=== PATIENT | female | born 1950 | race Caucasian/White ===

== ENCOUNTER → 2017-01-27 | Outpatient (CLI) | payer OTHER ==
--- NOTE | 2017-01-27 15:00 | US ---
EXAMINATION TYPE: US venous doppler duplex LE RT DATE OF EXAM: 01/27/2017 2:42 PM COMPARISON: No previous CLINICAL HISTORY: M79.669 PAIN IN LOWER LEG. Right leg pain x 1 week SIDE PERFORMED: Right VESSELS IMAGED: External Iliac Vein (EIV) Common Femoral Vein Deep Femoral Vein Greater Saphenous Vein * Femoral Vein Popliteal Vein Small Saphenous Vein * Proximal Calf Veins (* superficial vessels) No evidence for a filling defect. Normal compressibility and augmentation of flow. Right Leg: Appears negative for DVT IMPRESSION: No evidence for DVT.
--- NOTE | 2017-01-27 15:37 | XR ---
EXAMINATION TYPE: XR ankle complete RT, XR foot complete RT DATE OF EXAM: 01/27/2017 3:02 PM COMPARISON: NONE HISTORY: Pain TECHNIQUE: Frontal, lateral and oblique images of the right ankle are obtained. COMPARISON: None. FINDINGS: There is no acute fracture/dislocation evident. The joint spaces appear within normal centeno its. The overlying soft tissue appears unremarkable. IMPRESSION: There is no acute fracture or dislocation seen. EXAMINATION TYPE: XR ankle complete RT, XR foot complete RT DATE OF EXAM: 01/27/2017 3:02 PM CLINICAL HISTORY: pain TECHNIQUE: Frontal, lateral and oblique images of the right foot are obtained. COMPARISON: None. FINDINGS: There is no acute fracture/dislocation evident. There is erosive change noted to involve t he head of the fifth metatarsal which may be related to remote fracture. The joint spaces appear wit hin normal limits. The overlying soft tissue appears unremarkable. IMPRESSION: There is no acute fracture or dislocation. ICD 10 NO FRACTURE, INITIAL EVALUATION
== END | disposition home or self-care (01) ==
LOC: RADUSWWP 14:08
PROVIDERS: ATTEND Family Medicine
DX: M79.669 Pain in unspecified lower leg (principal); M79.671 Pain in right foot

== ENCOUNTER → 2017-03-09 | Outpatient (CLI) | payer OTHER ==
--- NOTE | 2017-03-14 09:48 | MM ---
Reason for exam: screening (asymptomatic). Physical Findings: A clinical breast exam by your physician is recommended on an annual basis and results should be correlated with mammographic findings. MG Screening Mammo w CAD Bilateral CC and MLO view(s) were taken. No prior studies available for comparison. The breast tissue is extremely dense which could obscure a lesion on mammography. There is no discrete abnormality. No significant changes when compared with prior studies. ASSESSMENT: Negative, BI-RAD 1 RECOMMENDATION: Routine screening mammogram of both breasts in 1 year.
== END | disposition home or self-care (01) ==
LOC: RADMAMWWP 10:36
PROVIDERS: ATTEND Family Medicine
DX: Z12.31 Encounter for screening mammogram for malignant neoplasm of breast (principal)

== ENCOUNTER → 2017-06-21 | Outpatient (CLI) | payer OTHER ==
[~2017-06-21] MED LIST: REGADENOSON 0.4 MG/5 ML SYRINGE IV ONE
--- NOTE | 2017-06-21 11:41 | NM ---
EXAMINATION TYPE: NM stress Lexiscan cardiolite DATE OF EXAM: 06/21/2017 COMPARISON: NONE HISTORY: Abnormal EKG. TECHNIQUE: After the intravenous administration of 10.02 mCi Tc 99m Sestamibi - Cardiolite resting S PECT images acquired 55 minutes post injection. The patient received 0.4mg Lexiscan, 26.4 mCi Tc 99m Sestamibi - Stress images obtained [address] injection FINDINGS: There is thinning of the inferior wall of the left ventricle. This could be due to diaphrag matic attenuation or previous nontransmural infarct. There is no convincing inducible ischemic change . There is a paradoxical motion of the septum. Ejection fraction is 59%. IMPRESSION: 1. NO CONVINCING EVIDENCE OF INDUCIBLE ISCHEMIC CHANGE AT THIS TIME. 2. THINNING OF THE INFERIOR WALL OF THE LEFT VENTRICLE. 3. PARADOXICAL MOTION OF THE SEPTUM.
--- NOTE | 2017-06-21 12:54 | EST ---
DATE OF SERVICE: 06/21/2017 TYPE OF REPORT: Lexiscan Cardiolite INDICATION: Pre-op. BASELINE HEART RATE: 73 BASELINE BLOOD PRESSURE: 144/71 MAXIMUM HEART RATE: 100 MAXIMUM BLOOD PRESSURE: 139/62 85% MPHR: 133 100% MPHR: 156 METS: MAX STAGE REACHED: TOTAL EXERCISE TIME: The patient was given Lexiscan injection over a period of 15 seconds. The peak heart rate of 100 was achieved. Maximum blood pressure of 139//62 mmHg was noted. Resting EKG shows normal sinus rhythm with normal SD interval and QRS duration and normal ST-T waves. No ST segment depression suggestive of ischemia was noted. The results of the nuclear study will follow. [facility]
== END ==
LOC: RADNMMAIN 08:47
PROVIDERS: ATTEND Family Medicine
DX: R94.31 Abnormal electrocardiogram [ECG] [EKG] (principal)
CPT/HCPCS: 93017; 78452; A9500; J2785

== ENCOUNTER → 2017-08-29 | Outpatient (CLI) | payer SELFPAY | END | disposition home or self-care (01) | LOC: LABWHC1 08:33 | PROVIDERS: ATTEND Orthopaedic Surgery | DX: E55.9 Vitamin D deficiency, unspecified (principal) | CPT/HCPCS: 36415; 82306 ==

== ENCOUNTER → 2018-04-24 | Outpatient (CLI) | payer MEDICARE, OTHER ==
--- NOTE | 2018-04-24 12:57 | BD ---
EXAMINATION TYPE: Axial Bone Density DATE OF EXAM: 04/24/2018 COMPARISON: 12.23.2008 CLINICAL HISTORY: 67 YR OLD FEMALE....ICD-10 CODE M81.0 AGE RELATED OSTEOPOROSIS W/O HRT Height: 61 Weight: 93 FRAX RISK QUESTIONS: Alcohol (3 or more units per day): SOCIAL ONLY Secondary Osteoporosis: 4. Malnutrition: VERY THIN, FRAIL Current Tobacco Use: YES, 1/2 PAC DAILY RISK FACTORS HISTORY OF: Active: YES Diet low in dairy products/other sources of calcium: NO Postmenopausal woman: YES AT AGE 53 Lost more than 2 inches in height since high school: YES MEDICATIONS: Additional Medications: BP MEDS, BABY ASPIRIN, MOTRIN, REFLUX MEDS, LIPITOR Additional History: NOTHING ADDITIONAL TO NOTE EXAM MEASUREMENTS: Bone mineral densitometry was performed using the Celery System. Bone mineral density as measured about the Lumbar spine is: ----- L1-L4(G/cm2): 1.199 T Score Values are as follows: ----- L1: -1.7 ----- L2: 0.5 ----- L3: 1.3 ----- L4: 0.2 ----- L1-L4: 0.2 Bone mineral density has: Increased 27.1% since study of: 12.23.2008 Bone mineral density about the R hip (g/cm2): 0.687 Bone mineral density about the L hip (g/cm2): 0.719 T Score values are as follows: -----R Neck: -2.5 -----L Neck: -2.4 -----R Total: -2.5 -----L Total: -2.3 Bone mineral density has: Decreased -4.9% since study of: 12.23.2008 FRAX%S: THERE IS A 12.2% CHANCE OF A MAJOR OSTEOPOROTIC FX AND A 4.5% FOR A HIP FX.....PROBABILITY OF FX IN 10 YRS TIME IMPRESSION: Osteoporosis about the right and osteopenia about the left hip. No evidence for osteoporosis or osteo penia about the lumbar spine. NOTE: T-SCORE=SD OF THE YOUNG ADULT MEAN.
== END | disposition home or self-care (01) ==
LOC: RADBDWWP 09:07
PROVIDERS: ATTEND Family Medicine
DX: M81.0 Age-related osteoporosis without current pathological fracture (principal); M85.852 Other specified disorders of bone density and structure, left thigh
CPT/HCPCS: 77080

== ENCOUNTER → 2018-10-23 | Outpatient (CLI) | payer MEDICARE, OTHER ==
--- NOTE | 2018-10-23 16:36 | XR ---
EXAMINATION TYPE: XR lumbar spine 2 or 3V DATE OF EXAM: 10/23/2018 COMPARISON: None HISTORY: Low back pain due to lifting TECHNIQUE: Three-view lumbar spine FINDINGS: There is a scoliosis present with the convexity to the right. There 5 lumbar-type vertebral bodies. Pedicles visualized are intact. Degenerative disc changes present L2-L3 with vacuum phenomen on. Milder degenerative disc changes are present through the remaining lumbar spine. Vertebral body h eights appear preserved. IMPRESSION: 1. Scoliosis and degenerative disc changes centered at L2-3.
== END ==
LOC: RADXRMAIN 09:42
PROVIDERS: ATTEND Physician Assistant
DX: M51.36 Other intervertebral disc degeneration, lumbar region (principal); M41.86 Other forms of scoliosis, lumbar region
CPT/HCPCS: 72100

== ENCOUNTER 2020-01-17 13:53 | Emergency (ER) | payer MEDICARE, OTHER ==
[2020-01-17 14:04] VITALS: RESP 18; TEMP 97.4
--- NOTE | 2020-01-17 14:37 | ED ---
General Adult HPI - General Chief complaint: Recheck/Abnormal Lab/Rx Stated complaint: poss UTI & back pain Time Seen by Provider: 01/17/20 14:10 Source: patient, family Mode of arrival: ambulatory Limitations: altered mental status - History of Present Illness Initial comments: Patient is a 69-year-old female presents emergency Department with multiple complaints. She is here with her daughter. Patient states she had hernia surgery 6 weeks ago and has been recovering well. She states that she went to [facility] approximately 2-1/2 weeks ago and was diagnosed with a UTI. Patient stated she took antibiotics and finished the course. Patient states she is still complaining of urinary frequency and having left-sided low back pain. She denies having fever, chills, abdominal pain, nausea, vomiting. Another complaint is that patient and daughter both admit that patient has been hearing voices for the last few weeks. She patient states the voices have been telling her to go outside and she can just hear voices talking a lot. She denies being suicidal or homicidal but states this is not going away. She states that she wishes to have a psych evaluation. She does take a antidepressant but she has been on this for years, no dosing changes. No other recent medication changes. She denies chest pain, shortness of breath. She denies any drug use, she admits smoking approximately one pack of cigarettes daily. Daughter states patient has not been eating as much lately either. She has been trying to drink fluids. There are no other complaints at this time. Upon arrival to the ER, patient's blood pressure slightly elevated, rest of vitals are normal. - Related Data Allergies Allergy/AdvReac Type Severity Reaction Status Date / Time No Known Allergies Allergy Verified 01/17/20 14:04 Review of Systems ROS Statement: Those systems with pertinent positive or pertinent negative responses have been documented in the HPI. ROS Other: All systems not noted in ROS Statement are negative. Past Medical History Past Medical History: Hyperlipidemia Additional Past Medical History / Comment(s): chronic back pain History of Any Multi-Drug Resistant Organisms: None Reported Past Surgical History: Hernia Repair Past Psychological History: Depression Smoking Status: Current every day smoker Past Alcohol Use History: None Reported Past Drug Use History: None Reported General Exam - General Exam Comments Initial Comments: GENERAL: Well-appearing, well-nourished and in no acute distress. HEAD: Atraumatic, normocephalic. EYES: Pupils equal round and reactive to light, extraocular movements intact, sclera anicteric, conjunctiva are normal. ENT: TMs normal, nares patent, oropharynx clear without exudates. Moist mucous membranes. NECK: Normal range of motion, supple without lymphadenopathy or JVD. LUNGS: Breath sounds clear to auscultation bilaterally and equal. No wheezes rales or rhonchi. HEART: Regular rate and rhythm without murmurs, rubs or gallops. ABDOMEN: Soft, nontender, normoactive bowel sounds. No guarding, no rebound. No masses appreciated. Recent laparotomy scars are healing well, no signs of infection. : Deferred EXTREMITIES: Normal range of motion, no pitting or edema. No clubbing or cyanosis. NEUROLOGICAL: Cranial nerves II through XII grossly intact. Normal speech, normal gait. PSYCH: Normal mood, normal affect. SKIN: Warm, Dry, normal turgor, no rashes or lesions noted. Limitations: altered mental status Course Vital Signs 01/17/20 01/17/20 13:57 17:11 Temperature 97.4 F L 97.4 F L Pulse Rate 73 72 Respiratory 18 18 Rate Blood Pressure 185/74 174/81 O2 Sat by Pulse 99 99 Oximetry Medical Decision Making - Medical Decision Making Patient is 69-year-old female here with possible UTI as well as requesting a psychiatric evaluation secondary to hearing voices for the past 2 weeks. Patient's vital signs are stable. Patient's exam is unremarkable. She denies suicidal or homicidal thoughts. Lab work today shows no acute abnormalities, urine is normal. Urine drug screen is normal. Patient was evaluated by EPS nurseGena. Patient was given multiple outpatient resources and is stable for discharge at this time. Patient sees a therapist who is helping with her stress and also feels comfortable speaking with Dr. Baeza. Discussed with patient that the voices she may be hearing may be actually from her [place] Patient continues to deny homicidal or suicidal thoughts. She does agree to a contract. Return parameters were discussed with the patient she verbalized understanding. - Lab Data Result diagrams: 01/17/20 14:50 01/17/20 14:50 Lab Results 02/21/20 02/21/20 02/21/20 Range/Units 14:50 14:50 14:50 WBC 5.7 (3.8-10.6) k/uL RBC 4.32 (3.80-5.40) m/uL Hgb 13.1 (11.4-16.0) gm/dL Hct 41.5 (34.0-46.0) % MCV 96.1 (80.0-100.0) fL MCH 30.4 (25.0-35.0) pg MCHC 31.7 (31.0-37.0) g/dL RDW 13.7 (11.5-15.5) % Plt Count 204 (150-450) k/uL Neutrophils % 67 % Lymphocytes % 21 % Monocytes % 5 % Eosinophils % 3 % Basophils % 1 % Neutrophils # 3.8 (1.3-7.7) k/uL Lymphocytes # 1.2 (1.0-4.8) k/uL Monocytes # 0.3 (0-1.0) k/uL Eosinophils # 0.2 (0-0.7) k/uL Basophils # 0.0 (0-0.2) k/uL Sodium 141 (137-145) mmol/L Potassium 3.8 (3.5-5.1) mmol/L Chloride 112 H (98-107) mmol/L Carbon Dioxide 25 (22-30) mmol/L Anion Gap 4 mmol/L BUN 13 (7-17) mg/dL Creatinine 0.78 (0.52-1.04) mg/dL Est GFR (CKD-EPI)AfAm >90 (>60 ml/min/1.73 sqM) Est GFR (CKD-EPI)NonAf 79 (>60 ml/min/1.73 sqM) Glucose 95 (74-99) mg/dL Calcium 9.6 (8.4-10.2) mg/dL Magnesium 2.1 (1.6-2.3) mg/dL Total Bilirubin 0.3 (0.2-1.3) mg/dL AST 17 (14-36) U/L ALT 10 (4-34) U/L Alkaline Phosphatase 79 (38-126) U/L Total Protein 6.5 (6.3-8.2) g/dL Albumin 3.8 (3.5-5.0) g/dL Urine Color Yellow Urine Appearance Cloudy H (Clear) Urine pH 6.5 (5.0-8.0) Ur Specific [place] 1.018 (1.001-1.035) Urine Protein Trace H (Negative) Urine Glucose (UA) Negative (Negative) Urine Ketones Negative (Negative) Urine Blood Trace H (Negative) Urine Nitrite Negative (Negative) Urine Bilirubin Negative (Negative) Urine Urobilinogen <2.0 (<2.0) mg/dL Ur Leukocyte Esterase Small H (Negative) Urine RBC 6 H (0-5) /hpf Urine WBC 2 (0-5) /hpf Ur Squamous Epith Cells 9 H (0-4) /hpf Urine Bacteria Rare H (None) /hpf Urine Mucus Rare H (None) /hpf Urine Opiates Screen Not Detected (NotDetected) Ur Oxycodone Screen Not Detected (NotDetected) Urine Methadone Screen Not Detected (NotDetected) Ur Propoxyphene Screen Not Detected (NotDetected) Ur Barbiturates Screen Not Detected (NotDetected) U Tricyclic Antidepress Not Detected (NotDetected) Ur Phencyclidine Scrn Not Detected (NotDetected) Ur Amphetamines Screen Not Detected (NotDetected) U Methamphetamines Scrn Not Detected (NotDetected) U Benzodiazepines Scrn Not Detected (NotDetected) Urine Cocaine Screen Not Detected (NotDetected) U Marijuana (THC) Screen Not Detected (NotDetected) Disposition Clinical Impression: Back pain, Hearing voices Disposition: HOME SELF-CARE Condition: Stable Instructions (If sedation given, give patient instructions): Brief Psychotic Disorder (ED) Additional Instructions: Please return to the Emergency Department if symptoms worsen or any other concerns. Use outpatient referral services as discussed. Follow-up with PCP. Is patient prescribed a controlled substance at d/c from ED?: No Referrals: Jose Baeza DO [Primary Care Provider] - 1-2 days
[2020-01-17 15:16] LABS: Basophils % (A) 1 %; Eosinophils # (A) 0.2 k/uL (0-0.7); Eosinophils % (A) 3 %; HCT 41.5 % (34.0-46.0); HGB 13.1 gm/dL (11.4-16.0); Lymphocytes # (A) 1.2 k/uL (1.0-4.8); Lymphocytes % (A) 21 %; MCH 30.4 pg (25.0-35.0); MCHC 31.7 g/dL (31.0-37.0); MCV 96.1 fL (80.0-100.0); Mean Platelet Volume 8.5; Monocytes # (A) 0.3 k/uL (0-1.0); Monocytes % (A) 5 %; Neutrophils # (A) 3.8 k/uL (1.3-7.7); Neutrophils % (A) 67 %; Platelet Count 204 k/uL (150-450); RBC 4.32 m/uL (3.80-5.40); RDW 13.7 % (11.5-15.5); WBC 5.7 k/uL (3.8-10.6)
[2020-01-17 15:19] LABS: Appearance,Urine Cloudy (Clear); Bacteria,Urine Rare /hpf; Bilirubin,Urine Negative (Negative); Blood,Urine Trace (Negative); Color,Urine Yellow; Glucose,Urine (UA) Negative (Negative); Ketones,Urine Negative (Negative); Leukocyte Esterase,Urine Small (Negative); Mucus,Urine Rare /hpf; Nitrite,Urine Negative (Negative); PH, Urine 6.5 (5.0-8.0); Protein,Urine Trace (Negative); RBC,Urine 6 /hpf (0-5); Specific Gravity,Urine 1.018 (1.001-1.035); Squamous Epithelial Cell,Urine 9 /hpf (0-4); Urobilinogen,Urine <2.0 mg/dL (<2.0); WBC,Urine 2 /hpf (0-5)
[2020-01-17 15:20] LABS: ALT 10 U/L (4-34); AST 17 U/L (14-36); African American GFR (CKD) >90 (>60 ml/min/1.73 sqM); Albumin 3.8 g/dL (3.5-5.0); Alkaline Phosphatase 79 U/L (38-126); Anion Gap 4 mmol/L; Blood Urea Nitrogen 13 mg/dL (7-17); Calcium 9.6 mg/dL (8.4-10.2); Carbon Dioxide 25 mmol/L (22-30); Chloride 112 mmol/L (98-107); Glucose 95 mg/dL (74-99); Magnesium 2.1 mg/dL (1.6-2.3); Non-African American GFR(CKD) 79 (>60 ml/min/1.73 sqM); Potassium 3.8 mmol/L (3.5-5.1); Sodium 141 mmol/L (137-145); Total Bilirubin 0.3 mg/dL (0.2-1.3); Total Protein 6.5 g/dL (6.3-8.2)
[2020-01-17 15:29] LABS: Amphetamine Screen,Urine Not Detected (NotDetected); Barbiturate Screen,Urine Not Detected (NotDetected); Benzodiazepines Screen,Urine Not Detected (NotDetected); Cocaine Screen,Urine Not Detected (NotDetected); Methadone Screen, Urine Not Detected (NotDetected); Opiate Screen,Urine Not Detected (NotDetected); Oxycodone Screen, Urine Not Detected (NotDetected); Phencyclidine Screen,Urine Not Detected (NotDetected); Tricyclic Antidepressant,Urine Not Detected (NotDetected); Urn Cannabinoid Scrn Not Detected (NotDetected)
[2020-01-17 17:13] VITALS: BP 174/81; PULSE 72
== END 2020-01-17 17:11 | disposition home or self-care (01) ==
LOC: EC 13:53
DX: R44.0 Auditory hallucinations (principal); M54.5 Low back pain; F43.9 Reaction to severe stress, unspecified; R41.82 Altered mental status, unspecified; R35.0 Frequency of micturition; F32.9 Major depressive disorder, single episode, unspecified; F17.210 Nicotine dependence, cigarettes, uncomplicated; Z79.899 Other long term (current) drug therapy; Z87.440 Personal history of urinary (tract) infections; Z98.890 Other specified postprocedural states
CPT/HCPCS: 36415; 80053; 80306; 81001; 83735; 85025; 99285

== ENCOUNTER → 2020-02-13 | Outpatient (CLI) | payer MEDICARE ==
--- NOTE | 2020-02-13 16:25 | US ---
EXAMINATION TYPE: US kidneys/renal and bladder DATE OF EXAM: 02/13/2020 COMPARISON: NONE CLINICAL HISTORY: N28.9 Renal impairment. UTI per patient. Bilateral groin pain. EXAM MEASUREMENTS: Right Kidney: 8.4 x 4.6 x 3.6 cm Left Kidney: 7.8 x 4.8 x 4.5 cm Post Void Residual Volume: 10.9 mL No masses seen bilateral groin. Right Kidney: small calcification noted inferiorly = 0.2 x 0.3 x 0.1cm Left Kidney: No hydronephrosis or masses seen Bladder: wnl Bilateral Jets seen: only right jet was seen Normal Post Void Residual: yes There is no evidence for hydronephrosis at this point in time. No masses are identified. The urinar y bladder is anechoic. IMPRESSION: Nonobstructing 0.3 mm right renal calculus. No hydronephrosis of either kidney.
--- NOTE | 2020-02-13 16:39 | US ---
EXAMINATION TYPE: US thyroid st tissue head/neck DATE OF EXAM: 02/13/2020 COMPARISON: NONE CLINICAL HISTORY: E05.90 Thyrotoxicosis. Patient c/o feeling of food stuck in throat. GLAND SIZE: Right Lobe: 4.7 x 1.2 x 1.5 cm Overall Parenchyma: homogenous Left Lobe: 3.5 x 1.4 x 1.4 cm Overall Parenchyma: homogeneous Isthmus Thickness: 0.3 cm NODULES RIGHT: # of nodules measured on right: 2 largest of multiple 1. 0.3 X 0.3 x 0.2 cm hypoechoic solid nodule at the upper pole with well-defined margins. This no dule is wider than tall and shows no intranodular vascularity. 2. 0.4 X 0.2 x 0.2 cm hypoechoic mixed nodule at the lower pole with well-defined margins; present w ith microcalcification. This nodule is wide as is tall and shows no intranodular vascularity. LEFT: # of nodules measured on left: 2 1. 0.5 X 0.4 x 0.3 cm hypoechoic mixed nodule at the upper pole with well-defined margins. This no dule is wider than tall and shows no intranodular vascularity. 2. 0.1 X 0.1 x 0.1 cm echogenic solid nodule at the lower pole with irregular margins; present with microcalcifications. This nodule is wide as is tall and shows no intranodular vascularity. ISTHMUS: # of nodules measured in the isthmus: 0 Bilateral neck scanned: no evidence of lymphadenopathy. IMPRESSION: Bilateral subcentimeter thyroid nodules in a multinodular goiter. Nodules are too small f or fine-needle aspiration at this time. Surveillance examination one year is recommended to ensure no interval growth.
== END | disposition home or self-care (01) ==
LOC: RADUSWWP 15:02
PROVIDERS: ATTEND Family Medicine
DX: N20.0 Calculus of kidney (principal); E05.90 Thyrotoxicosis, unspecified without thyrotoxic crisis or storm
CPT/HCPCS: 76536; 76770

== ENCOUNTER → 2020-03-31 | Outpatient (CLI) | payer MEDICARE | END | disposition home or self-care (01) | LOC: LABWHC1 12:23 | PROVIDERS: ATTEND Surgery Plastic and Reconstructive Surgery | DX: U07.1 COVID-19 (principal) | CPT/HCPCS: 87635 ==

== ENCOUNTER 2020-04-02 09:49 | Day surgery (SDC) | payer MEDICARE ==
[2020-03-31 12:30] VITALS: BMI 16.6
[~2020-04-02 09:49] MED LIST changes: +LACTATED RINGERS 1,000 ML IV SCH; -REGADENOSON 0.4 MG/5 ML SYRINGE IV ONE
[2020-04-02 10:31] VITALS: RESP 18; TEMP 97.8
[2020-04-02] MEDS ORDERED: LACTATED RINGERS 1,000 ML IV ONE (10:31)
[2020-04-02] MEDS ORDERED: PROPOFOL 10 MG/ML 20 ML VIAL IV ONE (10:48)
--- NOTE | 2020-04-02 11:04 | P.GSHP ---
History of Present Illness H&P Date: 04/02/20 CHIEF COMPLAINT: Dysphagia HISTORY OF PRESENT ILLNESS: The patient is a 69-year-old female who presents reports troubles with swallowing. Upper endoscopy was offered for further evaluation and management. PAST MEDICAL HISTORY: Please see list. PAST SURGICAL HISTORY: Please see list. MEDICATIONS: Please see list. ALLERGIES: Please see list. SOCIAL HISTORY: No illicit drug use FAMILY HISTORY: No reports of Crohn disease or ulcerative colitis. REVIEW OF ORGAN SYSTEMS: CONSTITUTIONAL: No reports of fevers or chills. PHYSICAL EXAM: VITAL SIGNS: Stable GENERAL: Well-developed and pleasant in no acute distress. HEENT: No scleral icterus. Extraocular movements grossly intact. Moist buccal mucosa. NECK: Supple without lymphadenopathy. CHEST: Unlabored respirations. Equal bilateral excursions. CARDIOVASCULAR: Regular rate and rhythm. Distal 2+ pulses. ABDOMEN: Soft, nondistended. MUSCULOSKELETAL: No clubbing, cyanosis, or edema. ASSESSMENT: 1. Dysphagia PLAN: 1. Recommend proceeding with an upper endoscopy with balloon dilation Past Medical History Past Medical History: Hyperlipidemia Additional Past Medical History / Comment(s): chronic back pain. HAVING PROBLEMS SWALLOWING AT TIMES History of Any Multi-Drug Resistant Organisms: None Reported Past Surgical History: Hernia Repair Past Anesthesia/Blood Transfusion Reactions: No Reported Reaction Smoking Status: Current every day smoker - Past Family History Mother Family Medical History: Cancer Brother(s) Family Medical History: Cancer Medications and Allergies Home Medications Medication Instructions Recorded Confirmed Type Alendronate Sodium [Fosamax] 70 mg PO WE 03/31/20 03/31/20 History Atorvastatin [Lipitor] 20 mg PO HS 03/31/20 03/31/20 History Cholecalciferol (Vitamin D3) 125 mcg PO DAILY 03/31/20 03/31/20 History [Vitamin D3] Naproxen 500 mg PO DAILY 03/31/20 03/31/20 History QUEtiapine [SEROquel] 50 mg PO HS 03/31/20 03/31/20 History Venlafaxine HCl [Effexor XR] 75 mg PO DAILY 03/31/20 03/31/20 History Allergies Allergy/AdvReac Type Severity Reaction Status Date / Time No Known Allergies Allergy Verified 03/31/20 12:16 Surgical - Exam Vital Signs Temp Pulse Resp BP Pulse Ox 97.8 F 78 18 141/69 99 04/02/20 10:29 04/02/20 10:29 04/02/20 10:29 04/02/20 10:29 04/02/20 10:29
--- NOTE | 2020-04-02 11:09 | P.PCN ---
Date of Procedure: 04/02/20 Description of Procedure: PREOPERATIVE DIAGNOSIS: Dysphagia POSTOPERATIVE DIAGNOSIS: Dysphagia Prepyloric 2 cm gastric ulcer Severe gastritis with recent bleed Diaphragmatic hiatal hernia Presbyesophagus OPERATION: Esophagogastroduodenoscopy with biopsies along antrum. Esophagogastroduodenoscopy with rigid dilator over guidewire, 51-Frisian esophagus dilator. SURGEON: Tamara Morgan MD ANESTHESIA: MAC. INDICATIONS: The patient is a 69-year-old female who presents with a history of trouble swall owing. Benefits and risks of the procedure were described. Informed consent was obtained. DESCRIPTION: The patient was brought into the endoscopy suite and laid in the left lateral decubitus position. An Olympus gastroscope was passed along the posterior oropharynx down to the distal esophagus where the squamocolumnar junction was encountered at 36 cm from the incisors. Abnormal tertiary contractions of the esophagus was identified consistent with presbyesophagus. The stomach was entered and no bile reflux was found. Additional findings are listed below. Biopsies with cold forceps were obtained of the antrum. The first through third portion of the duodenum was examined and unremarkable. Retroflexion of the scope confirmed Hill grade 3 lower esophageal valve. The squamocolumnar junction demonstrated LA grade B erosive esophagitis. The stomach was desufflated. The patient tolerated the procedure well. FINDINGS: Squamocolumnar junction 36 cm from the incisors. Diaphragmatic hiatus at 40 cm. Hiatal hernia, 4 cm Hill grade 3 lower esophageal valve. LA grade B erosive esophagitis. No active duodenitis. Chronic gastritis with recent bleed Large prepyloric 2 cm gastric ulcer distal to angularis incisura RECOMMENDATIONS: 1. Carafate 1 g twice a day and Protonix daily. 2. Upper endoscopy with dilation as needed Plan - Discharge Summary Discharge Rx Participant: No New Discharge Prescriptions: New Omeprazole [PriLOSEC] 40 mg PO DAILY #60 cap Sucralfate [Carafate] 1 gm PO BID #60 tab Continue QUEtiapine [SEROquel] 50 mg PO HS Atorvastatin [Lipitor] 20 mg PO HS Venlafaxine HCl [Effexor XR] 75 mg PO DAILY Cholecalciferol (Vitamin D3) [Vitamin D3] 125 mcg PO DAILY Alendronate Sodium [Fosamax] 70 mg PO WE Discontinued Naproxen 500 mg PO DAILY Discharge Medication List Alendronate Sodium [Fosamax] 70 mg PO WE 03/31/20 [History] Atorvastatin [Lipitor] 20 mg PO HS 03/31/20 [History] Cholecalciferol (Vitamin D3) [Vitamin D3] 125 mcg PO DAILY 03/31/20 [History] QUEtiapine [SEROquel] 50 mg PO HS 03/31/20 [History] Venlafaxine HCl [Effexor XR] 75 mg PO DAILY 03/31/20 [History] Omeprazole [PriLOSEC] 40 mg PO DAILY #60 cap 04/02/20 [Rx] Sucralfate [Carafate] 1 gm PO BID #60 tab 04/02/20 [Rx] Follow up Appointment(s)/Referral(s): Tamara Morgan MD [STAFF PHYSICIAN] - 04/07/20 Patient Instructions/Handouts: Peptic Ulcer (DC), Hiatal Hernia (DC), Gastritis (DC), How to Stop Smoking (DC) Activity/Diet/Wound Care/Special Instructions: Please stop aspirin, Aleve, ibuprofen, naproxen for your ulcers of her stomach Discharge Disposition: HOME SELF-CARE
[2020-04-02 11:32] VITALS: BP 114/56; PULSE 66
== END 2020-04-02 12:06 | disposition home or self-care (01) ==
LOC: ORWHC2ENDO 09:49
PROVIDERS: ATTEND Surgery Plastic and Reconstructive Surgery
DX: K29.50 Unspecified chronic gastritis without bleeding (principal); K25.9 Gastric ulcer, unspecified as acute or chronic, without hemorrhage or perforation; K22.10 Ulcer of esophagus without bleeding; K44.9 Diaphragmatic hernia without obstruction or gangrene; K22.8 Other specified diseases of esophagus; U07.1 COVID-19; E78.5 Hyperlipidemia, unspecified; G89.29 Other chronic pain; M54.9 Dorsalgia, unspecified; F17.200 Nicotine dependence, unspecified, uncomplicated; Z79.1 Long term (current) use of non-steroidal anti-inflammatories (NSAID); Z79.899 Other long term (current) drug therapy; Z98.890 Other specified postprocedural states; Z80.9 Family history of malignant neoplasm, unspecified
CPT/HCPCS: 88305; 43239; J2704; 43249

== ENCOUNTER 2020-07-01 13:07 | Emergency (ER) | payer MEDICARE ==
[2020-07-01 13:18] VITALS: TEMP 98
[2020-07-01] MEDS ORDERED: SODIUM CHLORIDE 0.9% 500 ML 500 ML IV STA (13:29)
--- NOTE | 2020-07-01 13:54 | ED ---
General Adult HPI - General Source: patient, EMS, RN notes reviewed, old records reviewed Mode of arrival: EMS Limitations: no limitations <Aries Proctor - Last Filed: 07/01/20 14:51> <Aries Mccabe - Last Filed: 07/01/20 15:37> - General Chief complaint: Syncope Stated complaint: Syncope Time Seen by Provider: 07/01/20 13:15 - History of Present Illness Initial comments: This is a 69-year-old female who presents emergency Department with a past history of smoking and having high cholesterol. Patient states she also has chronic back pain. Patient states she's been taking care of her and not eating or sleeping very well. Patient's has had a stroke and so she needs to be at home take care of him and it is becoming very exhausting for her. Patient states today she was sitting at the table felt lightheaded and went down to the ground but did not pass out but came close per patient states this happened twice today. Patient denies any headache patient denies numbness weakness denies focal denies any chest pain difficulty breathing shortness of breath. Patient denies any palpitations. Patient denies abdominal pain patient denies nausea vomiting diarrhea. Patient denies any recent fever chills or cough. (Aries Proctor) - Related Data Home Medications Medication Instructions Recorded Confirmed Alendronate Sodium [Fosamax] 70 mg PO WE 03/31/20 03/31/20 Atorvastatin [Lipitor] 20 mg PO HS 03/31/20 03/31/20 Cholecalciferol (Vitamin D3) 125 mcg PO DAILY 03/31/20 03/31/20 [Vitamin D3] QUEtiapine [SEROquel] 50 mg PO HS 03/31/20 03/31/20 Venlafaxine HCl [Effexor XR] 75 mg PO DAILY 03/31/20 03/31/20 Previous Rx's Medication Instructions Recorded Omeprazole [PriLOSEC] 40 mg PO DAILY #60 cap 04/02/20 Sucralfate [Carafate] 1 gm PO BID #60 tab 04/02/20 Allergies Allergy/AdvReac Type Severity Reaction Status Date / Time No Known Allergies Allergy Verified 07/01/20 13:13 Review of Systems ROS Other: All systems not noted in ROS Statement are negative. <Aries Proctor - Last Filed: 07/01/20 14:51> ROS Other: All systems not noted in ROS Statement are negative. <Aries Mccabe - Last Filed: 07/01/20 15:37> ROS Statement: Those systems with pertinent positive or pertinent negative responses have been documented in the HPI. Past Medical History Past Medical History: Hyperlipidemia Additional Past Medical History / Comment(s): chronic back pain History of Any Multi-Drug Resistant Organisms: None Reported Past Surgical History: Hernia Repair Past Anesthesia/Blood Transfusion Reactions: No Reported Reaction Past Psychological History: Depression Smoking Status: Current every day smoker Past Alcohol Use History: None Reported Past Drug Use History: None Reported - Past Family History Mother Family Medical History: Cancer Brother(s) Family Medical History: Cancer <Aries Proctor - Last Filed: 07/01/20 14:51> General Exam Limitations: no limitations <ProctorAries - Last Filed: 07/01/20 14:51> - General Exam Comments Initial Comments: GENERAL: Patient is well-developed and well-nourished. Patient is nontoxic and well- hydrated and is in no acute distress. ENT: Neck is soft and supple. No significant lymphadenopathy is noted. Oropharynx is clear. Moist mucous membranes. Neck has full range of motion without eloisa citing any pain. EYES: The sclera were anicteric and conjunctiva were pink and moist. Extraocular movements were intact and pupils were equal round and reactive to light. Eyelids were unremarkable. PULMONARY: Unlabored respirations. Good breath sounds bilaterally. No audible rales rhonchi or wheezing was noted. CARDIOVASCULAR: There is a regular rate and rhythm without any murmurs gallops or rubs. ABDOMEN: Soft and nontender with normal bowel sounds. SKIN: Skin is clear with no lesions or rashes and otherwise unremarkable. NEUROLOGIC: Patient is alert and oriented x3. Cranial nerves II through XII are grossly intact. Motor and sensory are also intact. Normal speech, volume and content. Symmetrical smile. MUSCULOSKELETAL: Normal extremities with adequate strength and full range of motion. LYMPHATICS: No significant lymphadenopathy is noted PSYCHIATRIC: Normal psychiatric evaluation. (Aries Proctor) Course Vital Signs 07/01/20 07/01/20 07/01/20 13:13 13:15 13:20 Temperature 98.0 F Pulse Rate 72 Respiratory 16 Rate Blood Pressure 160/77 160/77 O2 Sat by Pulse 99 99 99 Oximetry 07/01/20 07/01/20 07/01/20 13:30 13:40 13:50 Temperature Pulse Rate 71 71 63 Respiratory Rate Blood Pressure 148/79 150/75 193/99 O2 Sat by Pulse 100 100 100 Oximetry 07/01/20 14:30 Temperature Pulse Rate 98 Respiratory Rate Blood Pressure 160/95 O2 Sat by Pulse 100 Oximetry Medical Decision Making <Aries Proctor - Last Filed: 07/01/20 14:51> - Lab Data Result diagrams: 07/01/20 14:06 07/01/20 14:06 <Aries Mccabe - Last Filed: 07/01/20 15:37> - Medical Decision Making EKG shows normal sinus rhythm at 71 bpm NV interval is 168 QRSs 80 QT interval 396 QTC is 4:30. Patient's EKG shows no ST segment elevation or depression. Dr. Mccabe be taking over the care of this patient at 3 PM (Aries Proctor) - Lab Data Lab Results 07/01/20 07/01/20 07/01/20 Range/Units 14:06 14:06 14:06 WBC 4.7 (3.8-10.6) k/uL RBC 4.07 (3.80-5.40) m/uL Hgb 12.9 (11.4-16.0) gm/dL Hct 38.9 (34.0-46.0) % MCV 95.5 (80.0-100.0) fL MCH 31.6 (25.0-35.0) pg MCHC 33.0 (31.0-37.0) g/dL RDW 14.1 (11.5-15.5) % Plt Count 206 (150-450) k/uL Neutrophils % 61 % Lymphocytes % 26 % Monocytes % 5 % Eosinophils % 3 % Basophils % 1 % Neutrophils # 2.9 (1.3-7.7) k/uL Lymphocytes # 1.2 (1.0-4.8) k/uL Monocytes # 0.3 (0-1.0) k/uL Eosinophils # 0.2 (0-0.7) k/uL Basophils # 0.1 (0-0.2) k/uL PT 10.9 (9.0-12.0) sec INR 1.1 (<1.2) APTT 26.5 (22.0-30.0) sec Sodium 142 (137-145) mmol/L Potassium 3.6 (3.5-5.1) mmol/L Chloride 114 H (98-107) mmol/L Carbon Dioxide 21 L (22-30) mmol/L Anion Gap 7 mmol/L BUN 13 (7-17) mg/dL Creatinine 0.71 (0.52-1.04) mg/dL Est GFR (CKD-EPI)AfAm >90 (>60 ml/min/1.73 sqM) Est GFR (CKD-EPI)NonAf 89 (>60 ml/min/1.73 sqM) Glucose 87 (74-99) mg/dL Calcium 9.8 (8.4-10.2) mg/dL Magnesium 1.9 (1.6-2.3) mg/dL Total Bilirubin 0.3 (0.2-1.3) mg/dL AST 35 (14-36) U/L ALT 19 (4-34) U/L Alkaline Phosphatase 94 (38-126) U/L Troponin I (0.000-0.034) ng/mL Total Protein 6.4 (6.3-8.2) g/dL Albumin 3.9 (3.5-5.0) g/dL Urine Color Urine Appearance (Clear) Urine pH (5.0-8.0) Ur Specific [place] (1.001-1.035) Urine Protein (Negative) Urine Glucose (UA) (Negative) Urine Ketones (Negative) Urine Blood (Negative) Urine Nitrite (Negative) Urine Bilirubin (Negative) Urine Urobilinogen (<2.0) mg/dL Ur Leukocyte Esterase (Negative) 07/01/20 07/01/20 Range/Units 14:06 14:47 WBC (3.8-10.6) k/uL RBC (3.80-5.40) m/uL Hgb (11.4-16.0) gm/dL Hct (34.0-46.0) % MCV (80.0-100.0) fL MCH (25.0-35.0) pg MCHC (31.0-37.0) g/dL RDW (11.5-15.5) % Plt Count (150-450) k/uL Neutrophils % % Lymphocytes % % Monocytes % % Eosinophils % % Basophils % % Neutrophils # (1.3-7.7) k/uL Lymphocytes # (1.0-4.8) k/uL Monocytes # (0-1.0) k/uL Eosinophils # (0-0.7) k/uL Basophils # (0-0.2) k/uL PT (9.0-12.0) sec INR (<1.2) APTT (22.0-30.0) sec Sodium (137-145) mmol/L Potassium (3.5-5.1) mmol/L Chloride (98-107) mmol/L Carbon Dioxide (22-30) mmol/L Anion Gap mmol/L BUN (7-17) mg/dL Creatinine (0.52-1.04) mg/dL Est GFR (CKD-EPI)AfAm (>60 ml/min/1.73 sqM) Est GFR (CKD-EPI)NonAf (>60 ml/min/1.73 sqM) Glucose (74-99) mg/dL Calcium (8.4-10.2) mg/dL Magnesium (1.6-2.3) mg/dL Total Bilirubin (0.2-1.3) mg/dL AST (14-36) U/L ALT (4-34) U/L Alkaline Phosphatase (38-126) U/L Troponin I <0.012 (0.000-0.034) ng/mL Total Protein (6.3-8.2) g/dL Albumin (3.5-5.0) g/dL Urine Color Light Yellow Urine Appearance Clear (Clear) Urine pH 7.0 (5.0-8.0) Ur Specific [place] 1.005 (1.001-1.035) Urine Protein Negative (Negative) Urine Glucose (UA) Negative (Negative) Urine Ketones Negative (Negative) Urine Blood Negative (Negative) Urine Nitrite Negative (Negative) Urine Bilirubin Negative (Negative) Urine Urobilinogen <2.0 (<2.0) mg/dL Ur Leukocyte Esterase Negative (Negative) Disposition <Aries Proctor - Last Filed: 07/01/20 14:51> Is patient prescribed a controlled substance at d/c from ED?: No <Roskopp,Aries B - Last Filed: 07/01/20 15:37> Clinical Impression: Near syncope Disposition: HOME SELF-CARE Condition: Undetermined Instructions (If sedation given, give patient instructions): Near Syncope (ED) Referrals: Jose Baeza DO [Primary Care Provider] - 1-2 days
[2020-07-01 14:51] LABS: Basophils # (A) 0.1 k/uL (0-0.2); Basophils % (A) 1 %; Eosinophils # (A) 0.2 k/uL (0-0.7); Eosinophils % (A) 3 %; HCT 38.9 % (34.0-46.0); HGB 12.9 gm/dL (11.4-16.0); Lymphocytes # (A) 1.2 k/uL (1.0-4.8); Lymphocytes % (A) 26 %; MCH 31.6 pg (25.0-35.0); MCV 95.5 fL (80.0-100.0); Mean Platelet Volume 9.3; Monocytes # (A) 0.3 k/uL (0-1.0); Monocytes % (A) 5 %; Neutrophils # (A) 2.9 k/uL (1.3-7.7); Neutrophils % (A) 61 %; Platelet Count 206 k/uL (150-450); RBC 4.07 m/uL (3.80-5.40); RDW 14.1 % (11.5-15.5); WBC 4.7 k/uL (3.8-10.6)
--- NOTE | 2020-07-01 14:55 | XR ---
EXAMINATION TYPE: XR chest 2V DATE OF EXAM: 07/01/2020 COMPARISON: None INDICATION: Chest pain TECHNIQUE: Frontal and lateral views of the chest are obtained. FINDINGS: The heart size is normal. The pulmonary vasculature is normal. The lungs are clear. IMPRESSION: 1. No acute pulmonary process.
[2020-07-01 15:00] LABS: ALT 19 U/L (4-34); AST 35 U/L (14-36); African American GFR (CKD) >90 (>60 ml/min/1.73 sqM); Albumin 3.9 g/dL (3.5-5.0); Alkaline Phosphatase 94 U/L (38-126); Anion Gap 7 mmol/L; Blood Urea Nitrogen 13 mg/dL (7-17); Calcium 9.8 mg/dL (8.4-10.2); Carbon Dioxide 21 mmol/L (22-30); Chloride 114 mmol/L (98-107); Glucose 87 mg/dL (74-99); Magnesium 1.9 mg/dL (1.6-2.3); Non-African American GFR(CKD) 89 (>60 ml/min/1.73 sqM); Potassium 3.6 mmol/L (3.5-5.1); Sodium 142 mmol/L (137-145); Total Bilirubin 0.3 mg/dL (0.2-1.3); Total Protein 6.4 g/dL (6.3-8.2)
[2020-07-01 15:16] LABS: Appearance,Urine Clear (Clear); Bilirubin,Urine Negative (Negative); Blood,Urine Negative (Negative); Color,Urine Light Yellow; Glucose,Urine (UA) Negative (Negative); Ketones,Urine Negative (Negative); Leukocyte Esterase,Urine Negative (Negative); Nitrite,Urine Negative (Negative); Protein,Urine Negative (Negative); Specific Gravity,Urine 1.005 (1.001-1.035); Urobilinogen,Urine <2.0 mg/dL (<2.0)
[2020-07-01 15:23] LABS: INR 1.1 (<1.2); Partial Thromboplastin Time 26.5 sec (22.0-30.0); Prothrombin Time 10.9 sec (9.0-12.0)
[2020-07-01 15:36] VITALS: BP 164/86; PULSE 92; RESP 20
== END 2020-07-01 15:52 | disposition home or self-care (01) ==
LOC: EC 13:07
DX: R55 Syncope and collapse (principal); E78.5 Hyperlipidemia, unspecified; F32.9 Major depressive disorder, single episode, unspecified; F17.200 Nicotine dependence, unspecified, uncomplicated; Z79.899 Other long term (current) drug therapy; Z86.73 Personal history of transient ischemic attack (TIA), and cerebral infarction without residual deficits
CPT/HCPCS: 36415; 71046; 80053; 81003; 83735; 84484; 85025; 85610; 85730; 93005; 96360; 96361; 99285

== ENCOUNTER → 2020-07-20 | Outpatient (CLI) | payer MEDICARE ==
--- NOTE | 2020-07-20 18:37 | BD ---
EXAMINATION TYPE: Axial Bone Density DATE OF EXAM: 07/20/2020 COMPARISON: 04/24/2018 CLINICAL HISTORY: POSTMENOPAUSAL SCREENING Height: 5 FT 1 1/2 IN Weight: 99 FRAX RISK QUESTIONS: Alcohol (3 or more units per day): NO Family History (Parent hip fracture): NO Glucocorticoids (More than 3mos): NO (Ex: prednisone, prednisolone, methylprednisolone, dexamethasone, and hydrocortisone). History of Fracture in Adulthood: NO Secondary Osteoporosis: 1. Type 1 Diabetes: NO 2. Hyperthyroidism: NO 3. Menopause before 45: NO 4. Malnutrition: NO 5. Chronic liver disease: NO Rheumatoid Arthritis: NO Current Tobacco Use: YES RISK FACTORS HISTORY OF: Family History of Osteoporosis: NO Active: YES Postmenopausal woman: AGE 53 MEDICATIONS: Additional Medications: UNSURE WHAT HER MEDS ARE FOR Additional History: EXAM MEASUREMENTS: Bone mineral densitometry was performed using the [employer] System. Bone mineral density as measured about the Lumbar spine is: ----- L1-L4(G/cm2): 1.241 T Score Values are as follows: ----- L2: 1.4 ----- L3: 1.0 ----- L4: 0.2 ----- L1-L4: 0.5 Bone mineral density has: INCREASED 1.5 % since study of: 2017 Bone mineral density about the R hip (g/cm2): 0.652 Bone mineral density about the L hip (g/cm2): 0.643 T Score values are as follows: -----R Neck: -2.8 -----L Neck: -2.8 -----R Total: -2.7 -----L Total: -2.6 Bone mineral density has: DECREASED -4.7 % since study of: 2017 IMPRESSION: Osteoporosis (T Score less than -2.5). There is increased fracture risk and therapy is usually indicated based on age. Re-Screen 1-2 years. NOTE: T-SCORE=SD OF THE YOUNG ADULT MEAN.
--- NOTE | 2020-07-21 11:02 | MM ---
Reason for exam: screening (asymptomatic). Last mammogram was performed 3 years and 4 months ago. History: Patient is postmenopausal. Physical Findings: A clinical breast exam by your physician is recommended on an annual basis and results should be correlated with mammographic findings. MG Screening Mammo w CAD Bilateral CC and MLO view(s) were taken. Prior study comparison: March 09, 2017, bilateral MG screening mammo w CAD. The breast tissue is extremely dense which could obscure a lesion on mammography. Asymmetric breast tissue left posterior towards axilla. Focal asymmetry left middle posterior upper outer quadrant. This finding is more defined when compared with previous exams. ASSESSMENT: Incomplete: need additional imaging evaluation, BI-RAD 0 RECOMMENDATION: Special view mammogram of the left breast. If lesion persists on supplemental views, image directed ultrasound is recommended. [facility] will attempt to contact patient to return for supplemental views and ultrasound if indicated.
== END | disposition home or self-care (01) ==
LOC: RADMAMWWP 14:56
PROVIDERS: ATTEND Family Medicine
DX: Z12.31 Encounter for screening mammogram for malignant neoplasm of breast (principal); M81.0 Age-related osteoporosis without current pathological fracture
CPT/HCPCS: 77067; 77080

== ENCOUNTER → 2020-07-27 | Outpatient (CLI) | payer MEDICARE ==
--- NOTE | 2020-07-28 07:53 | MM ---
Reason for exam: additional evaluation requested from abnormal screening. Last mammogram was performed less than 1 month ago. History: Patient is postmenopausal. Physical Findings: Nurse did not find any significant physical abnormalities on exam. MG Work Up Mamm w CAD LT Spot compression CC and spot compression MLO view(s) were taken of the left breast. Prior study comparison: July 20, 2020, bilateral MG screening mammo w CAD. March 09, 2017, bilateral MG screening mammo w CAD. The breast tissue is heterogeneously dense. This may lower the sensitivity of mammography. These results were verbally communicated with the patient and result sheet given to the patient on 07/27/20. ASSESSMENT: Probably benign, BI-RAD 3 RECOMMENDATION: Follow-up diagnostic mammogram of the left breast in 6 months.
== END | disposition home or self-care (01) ==
LOC: RADMAMWWP 14:55
PROVIDERS: ATTEND Family Medicine
DX: R92.8 Other abnormal and inconclusive findings on diagnostic imaging of breast (principal)
CPT/HCPCS: 77065

== ENCOUNTER → 2020-08-26 | Outpatient (CLI) | payer MEDICARE ==
--- NOTE | 2020-08-28 07:31 | NM ---
EXAMINATION TYPE: NM thyroid image w uptake DATE OF EXAM: 08/27/2020 COMPARISON: Thyroid ultrasound February 13, 2020 HISTORY: Isolated thyrotropin Deficiency, hypothyroidism, nontoxic multinodular goiter all per order. Symptoms of tremor and insomnia along with dysphagia and cold intolerance per patient TECHNIQUE: Thyroid iodine uptake is calculated and images performed after the oral administration of 315 uCi 1-123 Capsule. FINDINGS: There is normal distribution of activity throughout the gland. The 4 hour iodine uptake is calculated at 8% (normal range 8-14%). The 24-hour iodine uptake is calculated at 24% (normal range 15-35%). IMPRESSION: Normal thyroid scan and uptake.
== END | disposition home or self-care (01) ==
LOC: RADNMMAIN 08:27
PROVIDERS: ATTEND Family Medicine
DX: E03.9 Hypothyroidism, unspecified (principal)
CPT/HCPCS: 78014; A9516

== ENCOUNTER → 2020-09-07 | Outpatient (CLI) | payer MEDICARE ==
[2020-09-07 11:07] LABS: Basophils % (A) 1 %; Eosinophils # (A) 0.2 k/uL (0-0.7); Eosinophils % (A) 4 %; HCT 41.8 % (34.0-46.0); HGB 13.3 gm/dL (11.4-16.0); Lymphocytes # (A) 1.4 k/uL (1.0-4.8); Lymphocytes % (A) 25 %; MCH 30.8 pg (25.0-35.0); MCHC 31.8 g/dL (31.0-37.0); MCV 96.7 fL (80.0-100.0); Mean Platelet Volume 7.8; Monocytes # (A) 0.3 k/uL (0-1.0); Monocytes % (A) 5 %; Neutrophils # (A) 3.5 k/uL (1.3-7.7); Neutrophils % (A) 64 %; Platelet Count 181 k/uL (150-450); RBC 4.33 m/uL (3.80-5.40); RDW 14.1 % (11.5-15.5); WBC 5.5 k/uL (3.8-10.6)
== END | disposition home or self-care (01) ==
LOC: LABWHC1 10:02
PROVIDERS: ATTEND Nurse Practitioner Acute Care
DX: E55.9 Vitamin D deficiency, unspecified (principal); R41.3 Other amnesia
CPT/HCPCS: 36415; 84207; 85025

== ENCOUNTER → 2020-09-08 | Outpatient (CLI) | payer MEDICARE ==
[2020-09-08 15:47] LABS: T4, Free (Free Thyroxine) 0.9 ng/dL (0.80-1.80)
[2020-09-08 19:00] LABS: African American GFR (CKD) 76.1 (60.0-200.0); Albumin 4.2 g/dL (3.80-4.90); Albumin/Globulin Ratio 1.91 (1.60-3.17); Anion Gap 6.9 mmol/L (4.00-12.00); BUN/Creat Ratio 14.44 Ratio (12.00-20.00); Calcium 9.8 mg/dL (8.7-10.3); Carbon Dioxide 24.1 mmol/L (21.6-31.8); Globulin 2.2 g/dL (1.6-3.3); Non-African American GFR(CKD) 65.7 (60.0-200.0); Potassium 4.3 mmol/L (3.5-5.5); Total Bilirubin 0.3 mg/dL (0.2-1.2); Total Protein 6.4 g/dL (6.2-8.2)
== END | disposition home or self-care (01) ==
LOC: LABWHC1 09:39
PROVIDERS: ATTEND Nurse Practitioner Acute Care
DX: E55.9 Vitamin D deficiency, unspecified (principal); R41.3 Other amnesia
CPT/HCPCS: 36415; 80053; 82306; 82607; 84439; 84443; 84481

== ENCOUNTER → 2022-03-04 | Outpatient (CLI) | payer MEDICARE ==
--- NOTE | 2022-03-07 11:31 | MM ---
Reason for exam: screening (asymptomatic). Last mammogram was performed 1 year and 7 months ago. History: Patient is postmenopausal. Physical Findings: A clinical breast exam by your physician is recommended on an annual basis and results should be correlated with mammographic findings. MG Screening Mammo w CAD Bilateral CC and MLO view(s) were taken. Prior study comparison: July 27, 2020, left breast MG work up mamm w CAD LT. July 20, 2020, bilateral MG screening mammo w CAD. The breast tissue is extremely dense which could obscure a lesion on mammography. There is chronic nodularity bilaterally. No significant changes when compared with prior studies. ASSESSMENT: Negative, BI-RAD 1 RECOMMENDATION: Routine screening mammogram of both breasts in 1 year.
== END | disposition home or self-care (01) ==
LOC: RADMAMWWP 12:40
PROVIDERS: ATTEND Family Medicine
DX: Z12.31 Encounter for screening mammogram for malignant neoplasm of breast (principal); Z78.0 Asymptomatic menopausal state
CPT/HCPCS: 77067